=== PATIENT | male | born 1945 | race Caucasian/White ===

== ENCOUNTER 2022-04-26 05:28 | Emergency (ER) | payer MEDICARE, OTHER ==
[~2022-04-26] VITALS: Ht 172 cm; Wt 79.0 kg
--- NOTE | 2022-04-26 05:40 | ED Lower Extremity ---
General Chief Complaint: Lower Extremity Stated Complaint: BOTH KNEE PAIN History of Present Illness Date Seen by Provider: Apr 26, 2022 Time Seen by Provider: 05:40 Initial Comments 76-year-old male presents with bilateral chronic knee pain. Been going on for years. Patient reports he has arthritis. Patient does appear for a couple weeks from [place]. Patient presents because he would like knee injections. Patient has no new injury. Allergies and Home Medications Allergies Coded Allergies: No Known Allergies (Verified Allergy, Unknown, 04/26/22) Patient Home Medication List Home Medication List Reviewed: Yes Review of Systems Constitutional: No chills, No fever EENTM: no symptoms reported Respiratory: no symptoms reported Cardiovascular: no symptoms reported Gastrointestinal: no symptoms reported Musculoskeletal: see HPI Skin: no symptoms reported Psychiatric/Neurological: No Symptoms Reported Physical Exam Vital Signs Capillary Refill : Height, Weight, BMI Height: '" Weight: lbs. oz. kg; BMI Method: General Appearance: WD/WN, no apparent distress HEENT: PERRL/EOMI Cardiovascular: normal peripheral pulses, regular rate, rhythm Respiratory: lungs clear Gastrointestinal: non tender, soft Hips: bilateral hip normal range of motion Legs: bilateral leg normal range of motion Knees: bilateral knee soft tissue tenderness Neurologic/Tendon: normal motor functions, normal tendon functions Neurologic/Psychiatric: alert, normal mood/affect, oriented x 3 Skin: normal color, warm/dry Progress/Results/Core Measures Progress Progress Note : Progress Note I will refer patient Bennie Tierney to see if he can get his outpatient knee injections and establish care since he comes between here in [place]. Patient was given a Toradol shot in the ER. Patient stable and discharged home Departure Impression Primary Impression: Osteoarthritis of knees, bilateral Qualified Codes: M17.0 - Bilateral primary osteoarthritis of knee Additional Impression: Bilateral chronic knee pain Disposition: HOME, SELF-CARE Condition: Stable Departure-Patient Inst. Referrals: HODAN TIERNEY Patient Instructions: Physical Activity for People With Arthritis, Osteoarthritis (DC) Add. Discharge Instructions: Please call Bennie Tierney's office on Thursday morning to arrange for an appointment All discharge instructions reviewed with patient and/or family. Voiced understanding. JUAN MANUEL GOMEZ DO Apr 26, 2022 05:40
[2022-04-26] MEDS ORDERED: KETOROLAC 30 MG/ML VIAL IM STA (05:47)
[2022-04-26 06:03] VITALS: BP 129/77
== END 2022-04-26 06:03 | disposition home or self-care (01) ==
LOC: ER FS 05:30
DX: M17.0 Bilateral primary osteoarthritis of knee (principal)
CPT/HCPCS: 99284

== ENCOUNTER → 2022-05-01 | Outpatient (CLI) | payer MEDICARE | LOC: ORTHO 15:09 | PROVIDERS: ATTEND Orthopaedic Surgery | DX: M17.0 Bilateral primary osteoarthritis of knee (principal) ==

== ENCOUNTER 2023-10-11 14:01 | Inpatient (IN) | payer MEDICARE ==
[2023-10-11] VITALS (7 sets, daily range): BP systolic 102–157; BP diastolic 69–97
[~2023-10-11] VITALS: Ht 170 cm; Wt 83.5 kg
[2023-10-11] MEDS ORDERED: NS IV 1000 ML 1,000 ML IV STA (14:06)
--- NOTE | 2023-10-11 14:11 | ED Neurological Problem ---
General Chief Complaint: Neuro-Stroke Like Symptoms Stated Complaint: SLURRED SPEECH; LETHARGY Source: patient, EMS Exam Limitations: no limitations History of Present Illness Date Seen by Provider: Oct 11, 2023 Time Seen by Provider: 14:00 Initial Comments 78-year-old male with past medical history of diabetes coming in via EMS due to general lethargy and slurred speech. Last known normal was last night around 9 PM. His woke up around 10 AM, noticed his speech was slurred and has been getting slightly worse throughout the day. He missed some Tegretol for his history of trigeminal neuralgia, so he took 2 doses last night, and he accidentally took an extra dose this morning. Other than that, EMS reports his glucose was around 90 and his vitals were unremarkable. They gave him a 0 on their stroke scale. He was stating that he just had a very dry mouth and he thought that was part of the reason. He denies any pain anywhere, vomiting, diarrhea, or any other concerns. Allergies and Home Medications Allergies Coded Allergies: No Known Allergies (Verified Allergy, Unknown, 04/26/22) Patient Home Medication List Home Medication List Reviewed: Yes Review of Systems Review of Systems Constitutional: No fever Eyes: No Symptoms Reported Ears, Nose, Mouth, Throat: see HPI Respiratory: no symptoms reported Cardiovascular: no symptoms reported Gastrointestinal: no symptoms reported Genitourinary: no symptoms reported Musculoskeletal: no symptoms reported Psychiatric/Neurological: See HPI Past Kdhbblb-Gebbci-Onvomg Hx Patient Social History Tobacco Use?: No Smoking Status: Never a Smoker Smokeless Tobacco Frequency: Never a User Use of E-Cig and/or Vaping dev: No Use of E-Cig and/or Vaping Bardly: Never a User Substance use?: No Alcohol Use?: No Pt feels they are or have been: No Physical Exam Vital Signs Vital Signs - First Documented 10/11/23 14:01 Temp 36.7 Pulse 85 Resp 15 B/P (MAP) 137/71 (93) Pulse Ox 96 O2 Delivery Room Air Capillary Refill : Height, Weight, BMI Height: '" Weight: lbs. oz. kg; 26.00 BMI Method: General Appearance: WD/WN, no apparent distress HEENT: PERRL/EOMI, pharynx normal, other (dry tongue) Neck: non-tender, full range of motion, supple, normal inspection Respiratory: chest non-tender, lungs clear, normal breath sounds, no respiratory distress, no accessory muscle use Cardiovascular: regular rate, rhythm, no edema Gastrointestinal: normal bowel sounds, non tender, soft; No guarding, No rebound Back: normal inspection, no CVA tenderness Extremities: normal range of motion, non-tender, normal inspection, no pedal edema, no calf tenderness, normal capillary refill Neurologic/Psychiatric: 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, no motor/sensory deficits, alert, normal mood/affect, oriented x 3 Crainal Nerves: normal hearing, PERRL, abnormal speech (slurred speech) Coordination/Gait: normal finger to nose Motor/Sensory: no motor deficit, no sensory deficit, no pronator drift Skin: normal color, warm/dry Stroke Onset of Symptoms Date of Onset of Symptoms: Oct 10, 2023 Time of Symptom Onset: 21:00 Onset of Symptoms: Yes NIH Stroke Scale Assessment Select: Initial Level of Consciousness: 0=Alert (0), Level of Consciousness- Questions: 0=Answers both month/age (0), LOC Commands: 0=Performs both tasks (0), Gaze: Normal (0), Visual Resendiz: 0=No visual loss (0), Facial Movement (Facial Paresis): 0=Normal symmetrical mnt (0), Motor Function-Arms Right: 0=No drift (0), Motor Function-Arms Left: 0=No drift (0), Motor Function-Legs Right: 0=No drift (0), Motor Function-Legs Left: 0=No drift (0), Limb Ataxia: 0=Absent (0), Sensory: 0=Normal:no loss (0), Best Language: 0=No aphasia (0), Dysarthria: 1=Mild to moderate loss (1), Extinction & Inattention: 0=No abnormality (0), Total: 1 Stroke Thrombolytic Exclusion TPA Contraindication: Yes (timing) IV - TPa Received IV - TPa Procedure Performed?: No Progress/Results/Core Measures Results/Orders Lab Results Laboratory Tests Test 10/11/23 14:10 10/11/23 14:13 10/11/23 14:16 10/11/23 14:51 Range/Units White Blood Count 9.7 4.3-11.0 10^3/uL Red Blood Count 3.82 L 4.30-5.52 10^6/uL Hemoglobin 9.2 L 13.3-17.7 g/dL Hematocrit 32 L 40-54 % Mean Corpuscular Volume 85 80-99 fL Mean Corpuscular Hemoglobin 24 L 25-34 pg Mean Corpuscular Hemoglobin Concent 28 L 32-36 g/dL Red Cell Distribution Width 17.2 H 10.0-14.5 % Platelet Count 349 130-400 10^3/uL Mean Platelet Volume 9.4 9.0-12.2 fL Immature Granulocyte % (Auto) 0 % Neutrophils (%) (Auto) 79 H 42-75 % Lymphocytes (%) (Auto) 10 L 12-44 % Monocytes (%) (Auto) 8 0-12 % Eosinophils (%) (Auto) 2 0-10 % Basophils (%) (Auto) 1 0-10 % Neutrophils # (Auto) 7.7 1.8-7.8 10^3/uL Lymphocytes # (Auto) 1.0 1.0-4.0 10^3/uL Monocytes # (Auto) 0.7 0.0-1.0 10^3/uL Eosinophils # (Auto) 0.2 0.0-0.3 10^3/uL Basophils # (Auto) 0.1 0.0-0.1 10^3/uL Immature Granulocyte # (Auto) 0.0 0.0-0.1 10^3/uL Prothrombin Time 12.8 12.2-14.7 SEC INR Comment 0.9 0.8-1.4 Activated Partial Thromboplast Time 24 24-35 SEC Sodium Level 140 135-145 MMOL/L Potassium Level 4.2 3.6-5.0 MMOL/L Chloride Level 105 98-107 MMOL/L Carbon Dioxide Level 28 21-32 MMOL/L Anion Gap 7 5-14 MMOL/L Blood Urea Nitrogen 15 7-18 MG/DL Creatinine 1.53 H 0.60-1.30 MG/DL Estimat Glomerular Filtration Rate 47 BUN/Creatinine Ratio 10 Glucose Level 72 70-105 MG/DL Calcium Level 8.7 8.5-10.1 MG/DL Corrected Calcium 9.2 8.5-10.1 MG/DL Total Bilirubin < 0.2 0.1-1.0 MG/DL Aspartate Amino Transf (AST/SGOT) 19 5-34 U/L Alanine Aminotransferase (ALT/SGPT) 8 0-55 U/L Alkaline Phosphatase 72 40-136 U/L Troponin I < 0.30 <0.30 NG/ML Pro-B-Type Natriuretic Peptide 228.5 <450.0 PG/ML Total Protein 5.9 L 6.4-8.2 GM/DL Albumin 3.4 3.2-4.5 GM/DL Carbamazepine (Tegretol) Level > 15.0 *H 4.0-12.0 UG/ML Serum Alcohol < 10 <10 MG/DL Glucometer 57 *L 94 70-110 MG/DL Urine Color YELLOW Urine Clarity CLEAR Urine pH 6.0 5-9 Urine Specific [place] 1.010 L 1.016-1.022 Urine Protein NEGATIVE NEGATIVE Urine Glucose (UA) 2+ H NEGATIVE Urine Ketones NEGATIVE NEGATIVE Urine Nitrite NEGATIVE NEGATIVE Urine Bilirubin NEGATIVE NEGATIVE Urine Urobilinogen 0.2 < = 1.0 MG/DL Urine Leukocyte Esterase NEGATIVE NEGATIVE Urine RBC (Auto) NEGATIVE NEGATIVE Urine RBC NONE /HPF Urine WBC NONE /HPF Urine Squamous Epithelial Cells 2-5 /HPF Urine Crystals NONE /LPF Urine Bacteria TRACE /HPF Urine Casts PRESENT /LPF Urine Hyaline Casts 0-2 H /LPF Urine Mucus NEGATIVE /LPF Urine Culture Indicated NO Urine Opiates Screen NEGATIVE NEGATIVE Urine Oxycodone Screen NEGATIVE NEGATIVE Urine Methadone Screen NEGATIVE NEGATIVE Urine Barbiturates Screen NEGATIVE NEGATIVE Ur Tricyclic Antidepressants Screen POSITIVE H NEGATIVE Urine Phencyclidine Screen NEGATIVE NEGATIVE Urine Amphetamines Screen NEGATIVE NEGATIVE Urine Methamphetamines Screen NEGATIVE NEGATIVE Urine Benzodiazepines Screen NEGATIVE NEGATIVE Urine Cocaine Screen NEGATIVE NEGATIVE Urine Cannabinoids Screen NEGATIVE NEGATIVE My Orders Orders - TD MCNALLY MD Cbc And Automated Diff (10/11/23 14:06) Protime With Inr (10/11/23 14:06) Partial Thromboplastin Time (10/11/23 14:06) Comprehensive Metabolic Panel (10/11/23 14:06) Troponin I Fs (10/11/23 14:06) Ua Culture If Indicated (10/11/23 14:06) Chest 1 View Ap/Pa Only (10/11/23 14:06) Ekg Tracing (10/11/23 14:06) Accucheck Stat ONCE (10/11/23 14:06) Ed Iv/Invasive Line Start (10/11/23 14:06) Vital Signs Stroke Patient Q15M (10/11/23 14:06) Ct Head Wo-R/O Stroke (10/11/23 14:06) O2 (10/11/23 14:06) Intake & Output 06,14,22 (10/11/23 14:06) Monitor-Rhythm Ecg Trace Only (10/11/23 14:06) Dysphagia Screening Tool Q10MX1 (10/11/23 14:06) Alcohol (10/11/23 14:06) Drug Screen Stat (Urine) (10/11/23 14:06) Ns Iv 1000 Ml (Ns Iv 1000 Ml) (10/11/23 14:06) Probnp Fs (10/11/23 14:19) D50w (Emergency) Syringe (Dextrose 50% 5 (10/11/23 14:30) D50w (Emergency) Syringe (Dextrose 50% 5 (10/11/23 14:26) Accucheck Stat ONCE (10/11/23 14:53) Ct Angio Head/Neck (10/11/23 14:57) Carbamazepine (Tegretol) (10/11/23 14:57) Iohexol Injection (Omnipaque 350 Mg/Ml 1 (10/11/23 15:15) Received Contrast (Hold Metformin- Contr (10/11/23 15:15) Ns (Ivpb) 100 Ml (Sodium Chloride 0.9% 1 (10/11/23 15:15) Ed Admission (Communication) (10/11/23 16:20) Medications Given in ED Current Medications Medications Dose Ordered Sig/Husam Route Start Time Stop Time Status Last Admin Dose Admin Dextrose 25 ml ONCE ONCE IV 10/11/23 14:30 10/11/23 14:31 DC 10/11/23 14:27 25 ML Iohexol 75 ml ONCE ONCE IV 10/11/23 15:15 10/11/23 15:16 DC 10/11/23 15:29 75 ML Sodium Chloride 100 ml ONCE ONCE IV 10/11/23 15:15 10/11/23 15:16 DC 10/11/23 15:29 80 ML Vital Signs/I&O 10/11/23 10/11/23 14:01 14:01 Temp 36.7 Pulse 85 Resp 15 B/P (MAP) 137/71 (93) Pulse Ox 96 O2 Delivery Room Air Room Air Progress Progress Note : Progress Note 78-year-old male with above history coming in due to slurred speech. ABCs were intact and vitals were stable on presentation. Physical exam with an NIH of 1 due to his slurred speech. Initially his iilhhs-te-oscq was abnormal, but he was able to fix it later. He also was a little drowsy, but oriented. It is possible this could be related to Tegretol, a level will be sent. He is out of any window for any immediate stroke treatment since his last known normal was last night and he did not come to the ER until roughly 2 PM. Glucose for EMS was in the 90s, Frasca was in the 50s. He was given half an amp of D50 followed by food. Repeat glucose in the 90s again, he still has slurred speech and is drowsy. CT head ordered and interpreted by me showing no obvious hemorrhage or mass. It was read as negative for acute findings per the radiologist. Chest x- ray also ordered and negative. An IV was placed and basic labs were obtained and were significant for normal white blood cell count, slightly elevated creatinine with unknown baseline, negative troponin, normal BNP, negative alcohol level, urine drug screen which is tricyclic's. I contacted the stroke neurologist at [facility]. They recommended CTA of his head and neck, and admission for MRI and echo. They stated this could be related to c arbamazepine versus could be stroke. They agree that is out of any window for treatment and does not need thrombectomy with no LVO. I contacted Dr. Ibarra, he will admit the patient under inpatient status to the step down for further evaluation and management. I discussed with the that she should bring all of his home medications so they can go through them later and see if he is doubling up on the carbamazepine via potentially 2 different prescriptions. Initial ECG Impression Date: Oct 11, 2023 Initial ECG Impression Time: 14:23 Initial ECG Rate: 84 Initial ECG Rhythm: Normal Sinus Comment Narrow QRS, borderline left axis deviation, no STEMI Diagnostic Imaging Diagonstic Imaging: Xray (chest), CT (CT head, CTA head and neck) Comments NAME: [facility] REC#: [id number] PT STATUS: REG ER : 1945 PHYSICIAN: TD MCNALLY MD ADMIT DATE: 10/11/23/ER FS Draft Date of Exam:10/11/23 CHEST 1 VIEW AP/PA ONLY EXAM: CHEST 1 VIEW AP/PA ONLY INDICATION: Lethargy. Slurred speech. COMPARISON: None. FINDINGS: Normal heart size and central pulmonary vascularity. Lungs are clear. No pleural effusion or pneumothorax. No acute osseous findings. IMPRESSION: Low lung volumes. Chest is otherwise negative. Dictated on workstation # [id number] Dict: 10/11/23 1422 Trans: 10/11/23 1423 CVB [id number] Interpreted by: SERGE MANNING MD Electronically signed by: ANIYAH VIA [place], [place] NAME: [facility]AYELI [facility] REC#: [id number] PT STATUS: REG ER : 1945 PHYSICIAN: TD MCNALLY MD ADMIT DATE: 10/11/23/ER FS Draft Date of Exam:10/11/23 CT HEAD WO-R/O STROKE PROCEDURE: CT head wo r/o stroke. TECHNIQUE: Multiple contiguous axial images were obtained through the brain without the use of intravenous contrast. Auto Exposure Controls were utilized during the CT exam to meet ALARA standards for radiation dose reduction. INDICATION: Stroke. Slurred speech. COMPARISON: None. FINDINGS: Moderate generalized parenchymal volume loss. No intracranial hemorrhage, mass effect, hydrocephalus or extra-axial fluid collections. No CT evidence of territorial infarction. Osseous structures are intact. Visualized paranasal sinuses and mastoids are clear. IMPRESSION: No acute intracranial CT findings. Dictated on workstation # [id number] Dict: 10/11/23 1434 Trans: 10/11/23 1440 CVB [id number] Interpreted by: SERGE MANNING MD Electronically signed by: NAME: [facility] REC#: [id number] PT STATUS: REG ER : 1945 PHYSICIAN: TD MCNALLY MD ADMIT DATE: 10/11/23/ER FS Signed Date of Exam:10/11/23 CT ANGIO HEAD/NECK EXAMINATION: CT angiography head and neck with and without contrast. TECHNIQUE: After intravenous administration of contrast, thin section axial CT angiography of the head and neck was performed to screen for LVO, and multiple reformats including MIP reconstructions. Postcontrast CT of the head was also obtained. All CT scans use one or more of the following dose optimizing techniques: automated exposure control, MA and/or KvP adjustment based on a patient size and exam type, or iterative reconstruction. CT angiogram was post-processed using RAPID LVO detection to include quantitative measurements of cerebral blood flow and automated results notification to the stroke and/or neurointerventional team. HISTORY: AMS, slurred speech COMPARISON: None available. FINDINGS: Overall suboptimal evaluation of the vasculature in the head and neck secondary to significant streak artifact and poor contrast bolus timing. HEAD: Anterior circulation: There are vascular calcifications of the cavernous portions of the ICAs with likely less than 50% stenosis. The anterior and middle cerebral arteries show no stenosis or intraluminal filling defect. No anterior circulation aneurysm is present. Posterior circulation: The visualized distal vertebral arteries are patent to the vertebrobasilar junction. The basilar artery and both posterior cerebral arteries are widely patent without stenosis. No posterior circulation aneurysm is present. Please see same day noncontrast CT head for discussion of nonvascular findings. No suspicious enhancement. NECK: Arch: Conventional branching of the aortic arch. The visualized subclavian arteries are patent without stenosis. Right: There are vascular calcifications within the distal common carotid artery and proximal internal carotid artery with less than 25% stenosis, as visualized. Limited evaluation of the proximal and mid right vertebral artery. Left: Mild plaque within the distal left common carotid artery without significant stenosis. The distal left vertebral artery appears patent but the proximal and mid portions are difficult to evaluate. Other: The visualized thyroid gland is unremarkable. The cervical soft tissues are unremarkable. The visualized upper lungs and mediastinum are normal. Degenerative changes of the cervical spine. IMPRESSION: No evidence of large vessel occlusion within the visualized head or neck. Evaluation is suboptimal secondary to streak artifact and poor bolus timing. Dictated by: Dictated on workstation # [id number] Dict: 10/11/23 1545 Trans: 10/11/231558 [facility] [id number] Interpreted by: KELLY VOGT DO Electronically signed by: KELLY VOGT DO 10/11/23 1559 Departure Impression Primary Impression: Slurred speech Additional Impressions: Stroke-like symptoms Hypoglycemia BONITA (acute kidney injury) Carbamazepine toxicity Qualified Codes: T42.1X1A - Poisoning by iminostilbenes, accidental (unintentional), initial encounter Disposition: 30 STILL A PATIENT Condition: Stable Admissions Decision to Admit Reason: Admit from ER (General) Decision to Admit/Date: Oct 11, 2023 Time/Decision to Admit Time: 15:20 Transfer Transfer Facility: [facility] Method of Transfer: EMS Departure-Patient Inst. Referrals: NO,LOCAL PHYSICIAN (PCP/Family) Primary Care Physician TD MCNALLY MD Oct 11, 2023 14:11
[2023-10-11 14:19] LABS: BASOPHILS # (AUTO) 0.1 10^3/uL (0.0-0.1); BASOPHILS % (AUTO) 1 % (0-10); EOSINOPHILS # (AUTO) 0.2 10^3/uL (0.0-0.3); EOSINOPHILS % (AUTO) 2 % (0-10); HEMATOCRIT 32 % (40-54); HEMOGLOBIN 9.2 g/dL (13.3-17.7); LYMPHOCYTES % (AUTO) 10 % (12-44); MEAN CORPUSCULAR HEMOGLOBIN 24 pg (25-34); MEAN CORPUSCULAR HGB CONC 28 g/dL (32-36); MEAN CORPUSCULAR VOLUME 85 fL (80-99); MEAN PLATELET VOLUME 9.4 fL (9.0-12.2); MONOCYTES # (AUTO) 0.7 10^3/uL (0.0-1.0); MONOCYTES % (AUTO) 8 % (0-12); NEUTROPHILS # (AUTO) 7.7 10^3/uL (1.8-7.8); NEUTROPHILS % (AUTO) 79 % (42-75); PLATELET COUNT 349 10^3/uL (130-400); WHITE BLOOD COUNT 9.7 10^3/uL (4.3-11.0)
[2023-10-11 14:20] LABS: BILIRUBIN,URINE NEGATIVE (NEGATIVE); CLARITY,URINE CLEAR; COLOR,URINE YELLOW; GLUCOSE, URINE (UA) 2+ (NEGATIVE); KETONES,URINE NEGATIVE (NEGATIVE); LEUKOCYTE ESTERASE ,URINE NEGATIVE (NEGATIVE); NITRITE,URINE NEGATIVE (NEGATIVE); PROTEIN,URINE NEGATIVE (NEGATIVE)
--- NOTE | 2023-10-11 14:24 | Diagnostic Imaging Report ---
EXAM: CHEST 1 VIEW AP/PA ONLY INDICATION: Lethargy. Slurred speech. COMPARISON: None. FINDINGS: Normal heart size and central pulmonary vascularity. Lungs are clear. No pleural effusion or pneumothorax. No acute osseous findings. IMPRESSION: Low lung volumes. Chest is otherwise negative. Dictated by: Dictated on workstation # [id number]
[2023-10-11] MEDS ORDERED: DEXTROSE 50% 50 ML (IMS) SYR ONE (14:26)
[2023-10-11 14:27] LABS: BACTERIA,URINE TRACE /HPF; HYALINE CASTS, URINE 0-2 /LPF
[2023-10-11] MEDS ORDERED: DEXTROSE 50% 50 ML (IMS) SYR IV ONE (14:30)
[2023-10-11 14:31] LABS: AMPHETAMINE SCREEN, URINE NEGATIVE (NEGATIVE); BARBITURATE SCREEN URINE NEGATIVE (NEGATIVE); CANNABINOID SCREEN, URINE NEGATIVE (NEGATIVE); COCAINE SCREEN URINE NEGATIVE (NEGATIVE); METHADONE STAT NEGATIVE (NEGATIVE); OPIATE SCREEN URINE NEGATIVE (NEGATIVE); OXYCODONE STAT NEGATIVE (NEGATIVE); TRICYCLIC ANTIDEPRESSANTS SCRE POSITIVE (NEGATIVE)
[2023-10-11 14:31] LABS: INR 0.9 (0.8-1.4); PROTHROMBIN TIME PATIENT 12.8 SEC (12.2-14.7)
[2023-10-11 14:34] LABS: BILIRUBIN,TOTAL < 0.2 MG/DL (0.1-1.0); CALCIUM 8.7 MG/DL (8.5-10.1); CHLORIDE 105 MMOL/L (98-107); POTASSIUM 4.2 MMOL/L (3.6-5.0); SODIUM 140 MMOL/L (135-145)
[2023-10-11 14:39] LABS: ALANINE AMINOTRANSFERASE 8 U/L (0-55); ALKALINE PHOSPHATASE 72 U/L (40-136); BUN/CREATININE RATIO 10; CARBON DIOXIDE 28 MMOL/L (21-32); CREATININE SERUM 1.53 MG/DL (0.60-1.30); GFR ESTIMATED 47; GLUCOSE 72 MG/DL (70-105)
[2023-10-11 14:40] LABS: ALBUMIN 3.4 GM/DL (3.2-4.5); TOTAL PROTEIN 5.9 GM/DL (6.4-8.2)
--- NOTE | 2023-10-11 14:41 | Diagnostic Imaging Report ---
PROCEDURE: CT head wo r/o stroke. TECHNIQUE: Multiple contiguous axial images were obtained through the brain without the use of intravenous contrast. Auto Exposure Controls were utilized during the CT exam to meet ALARA standards for radiation dose reduction. INDICATION: Stroke. Slurred speech. COMPARISON: None. FINDINGS: Moderate generalized parenchymal volume loss. No intracranial hemorrhage, mass effect, hydrocephalus or extra-axial fluid collections. No CT evidence of territorial infarction. Osseous structures are intact. Visualized paranasal sinuses and mastoids are clear. IMPRESSION: No acute intracranial CT findings. Dictated by: Dictated on workstation # [id number]
[2023-10-11] MEDS ORDERED: IOHEXOL 350 MG/ML 100 ML (OMNIPAQUE 350) VIAL IV ONE (15:15)
[2023-10-11] MEDS ORDERED: NS 100 ML (IVPB) BAG IV ONE (15:15)
[2023-10-11] MEDS ORDERED: HOLD METFORMIN - RECEIVED CONTRAST 20 ML VIAL IV SCH (15:15)
--- NOTE | 2023-10-11 15:59 | Diagnostic Imaging Report ---
EXAMINATION: CT angiography head and neck with and without contrast. TECHNIQUE: After intravenous administration of contrast, thin section axial CT angiography of the head and neck was performed to screen for LVO, and multiple reformats including MIP reconstructions. Postcontrast CT of the head was also obtained. All CT scans use one or more of the following dose optimizing techniques: automated exposure control, MA and/or KvP adjustment based on a patient size and exam type, or iterative reconstruction. CT angiogram was post-processed using RAPID LVO detection to include quantitative measurements of cerebral blood flow and automated results notification to the stroke and/or neurointerventional team. HISTORY: AMS, slurred speech COMPARISON: None available. FINDINGS: Overall suboptimal evaluation of the vasculature in the head and neck secondary to significant streak artifact and poor contrast bolus timing. HEAD: Anterior circulation: There are vascular calcifications of the cavernous portions of the ICAs with likely less than 50% stenosis. The anterior and middle cerebral arteries show no stenosis or intraluminal filling defect. No anterior circulation aneurysm is present. Posterior circulation: The visualized distal vertebral arteries are patent to the vertebrobasilar junction. The basilar artery and both posterior cerebral arteries are widely patent without stenosis. No posterior circulation aneurysm is present. Please see same day noncontrast CT head for discussion of nonvascular findings. No suspicious enhancement. NECK: Arch: Conventional branching of the aortic arch. The visualized subclavian arteries are patent without stenosis. Right: There are vascular calcifications within the distal common carotid artery and proximal internal carotid artery with less than 25% stenosis, as visualized. Limited evaluation of the proximal and mid right vertebral artery. Left: Mild plaque within the distal left common carotid artery without significant stenosis. The distal left vertebral artery appears patent but the proximal and mid portions are difficult to evaluate. Other: The visualized thyroid gland is unremarkable. The cervical soft tissues are unremarkable. The visualized upper lungs and mediastinum are normal. Degenerative changes of the cervical spine. IMPRESSION: No evidence of large vessel occlusion within the visualized head or neck. Evaluation is suboptimal secondary to streak artifact and poor bolus timing. Dictated by: Dictated on workstation # [id number]
[2023-10-11] MEDS ORDERED: D5 1/2NS + KCL 20 MEQ/L 1000ML 1,000 ML IV ONE (20:07)
[2023-10-11] MEDS ORDERED: ONDANSETRON INJECTION 4 MG/2 ML (SDV) IV PRN (20:30)
[2023-10-11] MEDS: D5 1/2NS + KCL 20 MEQ/L 1000ML 1,000 ML IV SCH (20:43)
[2023-10-11] MEDS: inSUlin ASPART 1 UNIT/0.01 ML (PER UNIT) SC SCH (20:44)
[2023-10-11] MEDS ORDERED: AMITRIPTYLINE 25 MG TABLET PO SCH (21:00)
[2023-10-12] VITALS (9 sets, daily range): BP systolic 82–135; BP diastolic 48–77
[2023-10-12] MEDS ORDERED: NS IV 500 ML 500 ML IV PRN (03:45)
[2023-10-12 05:17] LABS: POTASSIUM 3.9 MMOL/L (3.6-5.0)
[2023-10-12 05:18] LABS: CALCIUM 7.2 MG/DL (8.5-10.1)
[2023-10-12 05:23] LABS: CREATININE SERUM 1.24 MG/DL (0.60-1.30)
[2023-10-12] MEDS: inSUlin ASPART 1 UNIT/0.01 ML (PER UNIT) SC SCH ×2 (05:38→11:30)
[2023-10-12] MEDS: D5 1/2NS + KCL 20 MEQ/L 1000ML 1,000 ML IV SCH (05:57)
[2023-10-12] MEDS ORDERED: POTASSIUM CL 10MEQ/50ML IVPB 50 ML IV SCH (06:00)
[2023-10-12] MEDS ORDERED: POTASSIUM CHLORIDE 20 MEQ TABLET PO SCH (06:00)
[2023-10-12] MEDS ORDERED: MAGNESIUM 1 GM/100 ML IVPB 100 ML IV SCH (06:00)
[2023-10-12] MEDS ORDERED: LEVOTHYROXINE 125 MCG TABLET PO SCH (06:30)
[2023-10-12] MEDS ORDERED: VALSARTAN 80 MG (DIOVAN) TAB PO SCH (09:00)
[2023-10-12 11:16] LABS: CARBAMAZEPINE (TEGRETOL) 7.6 UG/ML (4.0-12.0)
--- NOTE | 2023-10-12 11:26 | Diagnostic Imaging Report ---
PROCEDURE: MR imaging of the brain without contrast. TECHNIQUE: Multiplanar, multisequence MR imaging of the brain was performed without contrast. INDICATION: Slurred speech. Stroke. Head injury. Falls. COMPARISON: CTA head and neck 10/11/2023. FINDINGS: Mild to moderate generalized volume loss. Mild nonspecific T2 hyperintensities in the supratentorial white matter are compatible with chronic small vessel ischemic change. No restricted water diffusion. No hemosiderin deposition or evidence of intracranial hemorrhage. Normal morphology including the major midline structures, sella, posterior fossa, and cerebellar pontine angle. Normal intracranial flow voids. No hydrocephalus or extra-axial fluid collections. Post operative changes in the globes. Paranasal sinuses and mastoids are clear. IMPRESSION: Age-appropriate MRI of the brain. No acute findings. No evidence of acute infarction or hemorrhage. Dictated by: Dictated on workstation # [id number]
--- NOTE | 2023-10-12 11:37 | Speech Therapy Progress Note ---
Therapy Progress Note Speech pathology received the cognitive linguistic evaluation, the chart was reviewed, and the assessment was completed on two attempts. During the first attempt, the patient was out of the room for a MRI. On the second attempt, the patient and patient's family member were present. Per patient, "I knew when I was slurring, I'm not doing it anymore." The patient (and ) confirmed the patient's return to baseline speech, language, and cognitive function. The [facility] pul[facility]ian requested the patient contact staff immediately if any changes or concerns arise. At this time, skilled speech pathology services are not warranted. NOLAN GEIGER Oct 12, 2023 11:37
--- NOTE | 2023-10-12 11:56 | History & Physical-Hospitalist ---
RADHA PEOPLES 10/12/23 1156: History of Present Illness HPI/Chief Complaint Pt is a 78-year-old male who came into the ER via EMS yesterday at 2 PM due to general lethargy and slurred speech. Last known normal was the night before around 9 PM. His woke up around 10 AM yesterday, noticed his speech was slurred and was getting worse throughout the day. He missed some Tegretol for his history of trigeminal neuralgia, so he took 2 doses 2 nights ago, and he accidentally took an extra dose yesterday morning. Other than that, EMS reports his glucose was around 90 and his vitals were unremarkable. They gave him a 0 on their stroke scale. He only reported dry mouth. Denied any pain anywhere, vomiting, diarrhea, or any other concerns. Today, pt feels better and wonders if his blood sugar being low contributed to how he felt yesterday. States that he has had low blood sugar before but has never felt weak like yesterday with staggering gait. He reports one fall where his R eyebrow was hit. His states that his speech is improved today. Pt reports that his L side of his face is still slightly droopy compared to the other side but unclear if this is his baseline. Source: patient, family Exam Limitations: no limitations Date Seen 10/12/23 Time Seen by a Provider: 11:51 Attending Physician Luz,Local Physician PCP Admitting Physician: Sarah Ibarra MD Attending Physician: Sarah Ibarra MD Referring Physician Date of Admission Oct 11, 2023 at 18:30 Home Medications & Allergies Home Medications Reviewed patient Home Medication Reconciliation performed by pharmacy medication reconciliations truck technician and/or nursing. Patients Allergies have been reviewed. Allergies Allergies Coded Allergies No Known Allergies (Verified Allergy, Unknown, 04/26/22) Past Vftxpmz-Fgplgu-[id number] Hx Patient Social History Marrital Status: Tobacco Use?: No Smoking Status: Never a Smoker Smokeless Tobacco Frequency: Never a User Use of E-Cig and/or Vaping dev: No Use of E-Cig and/or Vaping Bradly: Never a User Substance use?: No Alcohol Use?: No Pt feels they are or have been: No Seasonal Allergies Seasonal Allergies: Yes Current Status Advance Directives: No Communicates: Verbally Primary Language: Irish Preferred Spoken Language: Irish Is interpretation needed?: No Past Medical History Surgeries: Abdominal (hernia repair at 12 years old, partial colectomy in the 70's) Asthma Chronic Edema/Swelling, Hypertension Headaches /Migraines (Trigeminial neuralgia) Abdominal Hernia, Chronic Constipation (vagal nerve paralysis), Polyps Hypothyroidsim, Diabetes, Non-Insulin dep Loss of Vision: Denies Hearing Impairment: Hard of Hearing Review of Systems Constitutional: No chills, No diaphoresis, No fever EENTM: hearing loss; No ear pain, No blurred vision, No vision loss, No hoarseness Respiratory: No cough, No dyspnea on exertion, No hemoptysis, No short of breath Cardiovascular: No chest pain; edema; No palpitations Gastrointestinal: No abdominal pain, No diarrhea, No hematemesis; heartburn; No loss of appetite, No melena, No nausea, No vomiting Genitourinary: No decreased output, No discharge, No frequency, No hematuria Musculoskeletal: No gout, No neck pain Skin: No pruritus, No rash Psychiatric/Neurological: Denies Headache, Denies Numbness; Paresthesia (L side of face associated with trigeminal neuralgia); Denies Seizure Physical Exam Physical Exam Vital Signs Vital Signs - First Documented 10/11/23 10/11/23 14:01 18:53 Temp 36.7 Pulse 85 Resp 15 B/P (MAP) 137/71 (93) Pulse Ox 96 O2 Delivery Room Air FiO2 21 Capillary Refill : Less Than 3 Seconds Height, Weight, BMI Height: '" Weight: lbs. oz. kg; 28.89 BMI Method: General Appearance: No Apparent Distress, Chronically ill Eyes: Bilateral Eye Normal Inspection, Bilateral Eye PERRL HEENT: TMs Normal, Normal ENT Inspection Neck: Normal Inspection, Non Tender Respiratory: Chest Non Tender, No Accessory Muscle Use, No Respiratory Distress, Crackles Cardiovascular: No JVD, Systolic Murmur, Gallop/S3 Gastrointestinal: Normal Bowel Sounds, Non Tender, Soft Extremity: No Calf Tenderness, Pedal Edema (3+ worse on the R side), Other (Lower extremities are pale b/l) Neurologic/Psychiatric: Alert, Oriented x3, No Motor/Sensory Deficits, Normal Mood/Affect; No Aphasia; Facial Droop (L side lower face asymmetrical smile and very slight droop. Unsure if at baseline); No Motor Weakness Skin: Normal Color, Cool, Pallor (b/l feet and legs) Results Results/Procedures Labs Laboratory Tests 10/11/23 14:10 10/11/23 19:01 10/12/23 04:05 Patient resulted labs reviewed. Imaging: Reviewed Imaging Report Assessment/Plan Admission Diagnosis Slurred speech, carbamazepine toxicity, BONITA Reason for Inpatient Admission: Slurred speech, carbamazepine toxicity, BONITA Assessment and Plan Slurred speech secondary to carbamazepine toxicity - MRI head today to rule out stroke - Negative noncontrast CT head - Neg coags - Urine tox screen + for TCAs with carbamazepine >15. Repeat titer BONITA - Creatinine 1.53 in ER and 1.24 today on repeat CMP - Continue NaCl, KCl/dextrose for adequate hydration T2DM - Episode of hypoglycemia at 57. Most recent glucometer = 75. - Continue sliding scale insulin Hypothyroidism - Continue levothyroxine 125 mcg PO/d Clinical Quality Measures Stroke: Date of last known well: Oct 10, 2023 Time of last known well: 21:00 BRODY CANO MD 10/12/23 1506: Assessment/Plan Assessment and Plan Patient mated to the hospital due to strokelike symptoms and slurred speech. CT head and CTA were negative for acute findings or large vessel occlusions. He did report maybe taking an extra couple doses of his Tegretol. His level was found to be greater than 15. He was monitored overnight and treated with IV fluids. A repeat level after talking to poison control was found to be 7.6. His symptoms resolved. An MRI was done just to be sure that he did not have any other processes going on was negative for acute infarct. He reported being back to his baseline and his agreed with this. He was adamant about discharging in order to go deer hunting tomorrow. He was discharged home in stable improved condition to follow-up with his primary care physician in [place] in 2 weeks. Supervisory-Addendum Brief Verification & Attestation Participated in pt care: history, MDM, physical Personally performed: exam, history, MDM, supervision of care Care discussed with: Medical Student Procedures: n/a Results interpretation: Verified all documentation Verification and Attestation of Medical Student E/M Service A medical student performed and documented this service in my presence. I reviewed and verified all information documented by the medical student and made modifications to such information, when appropriate. I personally performed the physical exam and medical decision making. Brody Cano, Oct 12, 2023,15:04 RADHA PEOPLES Oct 12, 2023 11:56 BRODY CANO MD Oct 12, 2023 15:06
--- NOTE | 2023-10-12 11:59 | Discharge Inst-Simple/Standard ---
Discharge Inst-Standard Patient Instructions/Follow Up Plan of Care/Instructions/FU: Please continue to take your medications as written. Please follow up with your primary care doctor to follow up this hospital stay. Activity as Tolerated: Yes Discharge Diet: ADA Diet Return to The Hospital For: Chest pain, shortness of breath, fever, weakness, if you feel you are getting worse. BRODY BUTTS MD Oct 12, 2023 11:59
[2023-10-12] MEDS ORDERED: DULO30CA49 PO (12:29)
[2023-10-12] MEDS ORDERED: GLIM4TAB5 PO (12:29)
[2023-10-12] MEDS ORDERED: OLME40TA18 PO (12:29)
[2023-10-12] MEDS ORDERED: EMPA25TA PO (12:29)
[2023-10-12] MEDS ORDERED: [UNRECOGNIZED DRUG - CODE] PO (12:29)
[2023-10-12] MEDS ORDERED: LEVO125T6 PO (12:29)
[2023-10-12] MEDS ORDERED: TEST200V27 IM (12:29)
[2023-10-12] MEDS ORDERED: BUDE10.2 IH (12:29)
[2023-10-12] MEDS ORDERED: POTA-330 PO (12:29)
[2023-10-12] MEDS ORDERED: FURO40TA4 PO (12:29)
[2023-10-12] MEDS ORDERED: AMIT25TA9 PO (12:29)
[2023-10-12] MEDS ORDERED: MULT-1136 PO (12:29)
[2023-10-12] MEDS ORDERED: ATOR40TA70 PO (12:29)
[2023-10-12] MEDS ORDERED: METF-865 PO (12:29)
[2023-10-12] MEDS ORDERED: CARB-88 PO ×2 (12:29)
[2023-10-12] MEDS ORDERED: VITA100033 PO (12:29)
[2023-10-12] MEDS ORDERED: ASPI-1238 PO (12:29)
[2023-10-12] MEDS ORDERED: IPRA4AER IH (12:29)
--- NOTE | 2023-10-12 12:55 | Physical Therapy Evaluation ---
PT Evaluation-General Medical Diagnosis Admission Date Oct 11, 2023 at 18:30 Medical Diagnosis: slurred speech Onset Date: Oct 11, 2023 Therapy Diagnosis Therapy Diagnosis: debility Precautions Precautions/Isolations: Fall Prevention, Standard Precautions Referral Physician: Rachael Reason for Referral: Evaluation/Treatment Medical History Pertinent Medical History: DM Current History EMS secondary to lethargy and slurred speech Reviewed History: Yes Social History Home: Single Level Current Living Status: Spouse Prior Prior Level of Function SCALE: Activities may be completed with or without assistive devices. 4-Udhqkqrnuq-rbwpoae completes the activity by him/herself with no assistance from a helper. 5-Set-up or Clean-up Assistance-helper sets up or cleans up; patient completes activity. [place] assists only prior to or following the activity. 4-Supervision or Touching Assistance-helper provides verbal cues and/or touching/steadying and/or contact guard assistance as patient completes activity. Assistance may be provided throughout the activity or intermittently. 3-Partial/Moderate Assistance-helper does LESS THAN HALF the effort. [place] lifts, holds or supports trunk or limbs, but provides less than half the effort. 2-Substantial/Maximal Assistance-helper does MORE THAN HALF the effort. [place] lifts or holds trunk or limbs and provides more than half the effort. 3-Fwwyustlx-zhubdq does ALL the effort. Patient does none of the effort to complete the activity. Or, the assistance of 2 or more helpers is required for the patient to complete the activity. If activity was not attempted, code reason: 7-Patient Refused. 9-Not Applicable-not attempted and the patient did not perform the activity before the current illness, exacerbation or injury. 10-Not Attempted due to Environmental Limitations-(lack of equipment, weather restraints, etc.). 88-Not Attempted due to Medical Conditions or Safety Concerns. Bed Mobility: 6 Transfers (B,C,W/C): 6 Gait: 6 Stairs: 6 Indoor Mobility (Ambulation): Independent Stairs: Independent Prior Devices Use: None PT Evaluation-Current Subjective Patient agrees to therapy. Objective Patient Orientation: Normal For Age ROM/Strength ROM Lower Extremities bilateral LE WFL Strength Lower Extremities 5/5 grossly bilateral LE all planes Integumentary/Posture Bowel Incontinence: No Bladder Incontinence: No Posture WFL Neuromuscular (Tone, Coordination, Reflexes) grossly intact Sensory Vision: Functional Hearing: Impaired Transfers Lying to Sitting/Side of Bed(Q: 6 Sit to Stand (QC): 6 Chair/Kjs-ey-Xcrxl Xfer(QC): 6 Gait Mode of Locomotion: Walk Anticipated Mode of Locomotion: Walk Walk 10 feet (QC): 6 Walk 50 ft with 2 Turns(QC): 6 Walk 150 ft (QC): 6 Distance: 200' Gait Assistive Device: None Comments/Gait Description safe and functional with no deviation Balance Sitting Static: Normal Sitting Dynamic: Normal Standing Static: Normal Standing Dynamic: Normal Assessment/Needs Patient is currently at independent [facility] with all gross motor skills and does not require skilled PT intervention at this time. Rehab Potential: Fair PT Plan Treatment/Plan Treatment Plan: Discontinue PT Treatment Duration: Oct 12, 2023 Frequency: 1 time per week Estimated Hrs Per Day: .25 hour per day Patient and/or Family Agrees t: Yes Time Time In: 1235 Time Out: 1248 DATE: Oct 12, 2023 Total Billed Treatment Time: 13 Total Billed Treatment [address] [facility] 13 min ERICK JUNIOR PT Oct 12, 2023 12:55
--- NOTE | 2023-10-12 12:59 | Occupational Therapy Eval ---
OT Evaluation-General/PLF Medical Diagnosis Admission Date Oct 11, 2023 at 18:30 Medical Diagnosis: slurred speech Onset Date: Oct 10, 2023 Therapy Diagnosis Therapy Diagnosis: hearing deficit, weakness Precautions Precautions/Isolations: Fall Prevention, Standard Precautions Weight Bear Status Weight Bearing Restriction: Full Weight Bearing Referral Referral Reason: Evaluation/Treatment Medical History Additional Medical History 78-year-old male who came into the ER via EMS yesterday at 2 PM due to general lethargy and slurred speech. Last known normal was the night before around 9 PM. His woke up around 10 AM yesterday, noticed his speech was slurred and was getting worse throughout the day. He missed some Tegretol for his history of trigeminal neuralgia, so he took 2 doses 2 nights ago, and he accidentally took an extra dose yesterday morning. Other than that, EMS reports his glucose was around 90 and his vitals were unremarkable. They gave him a 0 on their stroke scale. He only reported dry mouth. Denied any pain anywhere, vomiting, diarrhea, or any other concerns. Reviewed History: Yes Social History Home: Assisted Living Current Living Status: Spouse Entry Into Home: Stairs With Railing Steps Into Home: 1 Steps Inside Home: 0 Lives in [place], has a home n [place] [employer] [place] [email or web address] ADL-Prior Level of Function SCALE: Activities may be completed with or without assistive devices. 6-Whjyvvxrmm-fqkfsgq completes the activity by him/herself with no assistance from a helper. 5-Set-up or Clean-up Assistance-helper sets up or cleans up; patient completes activity. [place] assists only prior to or following the activity. 4-Supervision or Touching Assistance-helper provides verbal cues and/or touching/steadying and/or contact guard assistance as patient completes activity. Assistance may be provided throughout the activity or intermittently. 3-Partial/Moderate Assistance-helper does LESS THAN HALF the effort. [place] lifts, holds or supports trunk or limbs, but provides less than half the effort. 2-Substantial/Maximal Assistance-helper does MORE THAN HALF the effort. [place] lifts or holds trunk or limbs and provides more than half the effort. 5-Qqkdxibdi-husltu does ALL the effort. Patient does none of the effort to complete the activity. Or, the assistance of 2 or more helpers is required for the patient to complete the activity. If activity was not attempted, code reason: 7-Patient Refused. 9-Not Applicable-not attempted and the patient did not perform the activity before the current illness, exacerbation or injury. 10-Not Attempted due to Environmental Limitations-(lack of equipment, weather restraints, etc.). 88-Not Attempted due to Medical Conditions or Safety Concerns. Self Care: Independent Functional Cognition: Independent DME/Equipment: Tub/Shower Drive Self: Yes OT Current Status Subjective Agreeable to participate. Hard of hearing Mental Status/Objective Patient Orientation: Person, Place, Time, Situation Current Glasses/Contacts: Yes Hearing Aids: No (hard of hearing) Dentures/Partials: No Hand Dominance: Right Upper Extremity ROM BUE ROM WFLS Upper Extremity Coordination intact Upper Extremity Strength +4/5 grossly BUE ADL-Treatment Eating (QC): 6 Oral Hygiene (QC): 6 Shower/Bathe Self (QC): 7 Upper Body Dressing (QC): 6 Lower Body Dressing (QC): 6 On/Off Footwear (QC): 6 (socks and tie shoes) Toileting Hygiene (QC): 6 Education OT Patient Education: Correct positioning, Progress toward Goal/Update tx plan, Purpose of tx/functional activities, Reviewed precautions, Rehab process, Safety issues, Transfer techniques Teaching Recipient: Patient, Family (spouse) Teaching Methods: Demonstration, Discussion Response to Teaching: Return Demonstration OT Long-Term Goals Environmental Specialist Goals 1=Demonstrate adherence to instructed precautions during ADL tasks. 2=Patient will verbalize/demonstrate understanding of assistive devices/modifications for ADL. 3=Patient will improve strength/tolerance for activity to enable patient to perform ADL's. OT Education/Plan Problem List/Assessment Assessment: No Skilled OT Needs ID'd, Decreased Activ Tolerance Discharge Recommendations Plan/Recommendations: Discontinue OT Treatment Plan/Plan of Care Patient would benefit from OT for education, treatment and training to promote independence in ADL's, mobility, safety and/or upper extremity function for ADL's. Plan of Care: OTHER (EVAL only) Treatment Duration: Oct 12, 2023 Frequency: 1 time per week Estimated Hrs Per Day: .25 hour per day Rehab Potential: Good Time Start Time: 12:50 Stop Time: 13:01 DATE: Oct 12, 2023 Total Time Billed (hr/min): 11 Billed Treatment Time EVL 11 min MIGUEL ANGEL GU OT Oct 12, 2023 12:59
--- NOTE | 2023-10-12 14:30 | Short Stay Summary-Hospitalist ---
RADHA PEOPLES 10/12/23 1430: History of Present Illness HPI/Chief Complaint Pt is a 78-year-old male who came into the ER via EMS yesterday at 2 PM due to general lethargy and slurred speech. Last known normal was the night before around 9 PM. His woke up around 10 AM yesterday, noticed his speech was slurred and was getting worse throughout the day. He missed some Tegretol for his history of trigeminal neuralgia, so he took 2 doses 2 nights ago, and he accidentally took an extra dose yesterday morning. Other than that, EMS reports his glucose was around 90 and his vitals were unremarkable. They gave him a 0 on their stroke scale. He only reported dry mouth. Denied any pain anywhere, vomiting, diarrhea, or any other concerns. Today, pt feels better and wonders if his blood sugar being low contributed to how he felt yesterday. States that he has had low blood sugar before but has never felt weak like yesterday with staggering gait. He reports one fall where his R eyebrow was hit. His states that his speech is improved today. Pt reports that his L side of his face is still slightly droopy compared to the other side but unclear if this is his baseline. Source: patient, family Date Seen 10/12/23 Time Seen by a Provider: 14:27 Attending Physician No,Local Physician PCP Admitting Physician: Sarah Ibarra MD Attending Physician: Sarah Ibarra MD Referring Physician Date of Admission Oct 11, 2023 at 18:30 Home Medications & Allergies Home Medications Reviewed patient Home Medication Reconciliation performed by pharmacy medication reconciliations medical lab technician and/or nursing. Patients Allergies have been reviewed. Allergies Allergies Coded Allergies No Known Allergies (Verified Allergy, Unknown, 04/26/22) Past Medical/Social/Family Hx Patient Social History Marrital Status: Tobacco Use?: No Smoking Status: Never a Smoker Smokeless Tobacco Frequency: Never a User Use of E-Cig and/or Vaping dev: No E-Cig and/or Vaping Freq: Never a User Substance use?: No Alcohol Use?: No Pt stated abuse/neglect: No Immunizations Up To Date Influenza Vaccine Up-to-Date: Yes; Up-to-Date Current Status Advance Directives: No Communicates: Verbally Primary Language: Jamaican Preferred Spoken Language: Jamaican Is interpretation needed?: No Review of Systems Constitutional: No chills, No fever, No weakness EENTM: No blurred vision, No double vision, No vision loss Respiratory: No cough, No dyspnea on exertion, No hemoptysis, No short of breath Cardiovascular: No chest pain, No palpitations Gastrointestinal: No abdominal pain, No diarrhea, No hematemesis, No nausea, No vomiting Genitourinary: No dysuria, No hematuria Musculoskeletal: No back pain, No gout Skin: No pruritus, No rash Psychiatric/Neurological: Denies Headache; Paresthesia (L side of face) Physical Exam Physical Exam Vital Signs Vital Signs - First Documented 10/11/23 10/11/23 14:01 18:53 Temp 36.7 Pulse 85 Resp 15 B/P (MAP) 137/71 (93) Pulse Ox 96 O2 Delivery Room Air FiO2 21 Capillary Refill : Less Than 3 Seconds Height, Weight, BMI Height: '" Weight: lbs. oz. kg; 28.89 BMI Method: General Appearance: No Apparent Distress, Chronically ill Eyes: Bilateral Eye Normal Inspection, Bilateral Eye PERRL HEENT: TMs Normal, Normal ENT Inspection Neck: Normal Inspection, Non Tender Respiratory: Chest Non Tender, No Accessory Muscle Use, No Respiratory Distress, Crackles Cardiovascular: No JVD, Systolic Murmur, Gallop/S3 Gastrointestinal: Normal Bowel Sounds, Non Tender, Soft Extremity: No Calf Tenderness, Pedal Edema (3+ worse on the R side), Other (Lower extremities are pale b/l) Neurologic/Psychiatric: Alert, Oriented x3, No Motor/Sensory Deficits, Normal Mood/Affect; No Aphasia; Facial Droop (L side lower face asymmetrical smile and very slight droop. Unsure if at baseline); No Motor Weakness Skin: Normal Color, Cool, Pallor (b/l feet and legs) Results Results/Procedures Labs Laboratory Tests 10/11/23 14:10 10/11/23 19:01 10/12/23 04:05 Patient resulted labs reviewed. Imaging: Reviewed Imaging Report Short Stay Diagnosis Discharge Diagnosis-Short Stay Admission Diagnosis Slurred speech, carbamazepine toxicity, BONITA Conclusion Plan Slurred speech secondary to carbamazepine toxicity - MRI head today to rule out stroke - Negative noncontrast CT head - Neg coags - Urine tox screen + for TCAs with carbamazepine >15. Repeat titer BONITA - Creatinine 1.53 in ER and 1.24 today on repeat CMP - Continue NaCl, KCl/dextrose for adequate hydration T2DM - Episode of hypoglycemia at 57. Most recent glucometer = 75. - Continue sliding scale insulin Hypothyroidism - Continue levothyroxine 125 mcg PO/d Clinical Quality Measures Stroke: Date of last known well: Oct 10, 2023 Time of last known well: 21:00 BRODY CANO MD 10/12/23 1508: Short Stay Diagnosis Discharge Diagnosis-Short Stay Final Discharge Diagnosis Tegretol Overdose Conclusion Plan Patient mated to the hospital due to strokelike symptoms and slurred speech. CT head and CTA were negative for acute findings or large vessel occlusions. He did report maybe taking an extra couple doses of his Tegretol. His level was found to be greater than 15. He was monitored overnight and treated with IV fluids. A repeat level after talking to poison control was found to be 7.6. His symptoms resolved. An MRI was done just to be sure that he did not have any other processes going on was negative for acute infarct. He reported being back to his baseline and his agreed with this. He was adamant about discharging in order to go deer hunting tomorrow. He was discharged home in stable improved condition to follow-up with his primary care physician in [place] in 2 weeks. Supervisory-Addendum Brief Verification & Attestation Participated in pt care: history, MDM, physical Personally performed: exam, history, MDM, supervision of care Care discussed with: Medical Student Procedures: n/a Results interpretation: Verified all documentation Verification and Attestation of Medical Student E/M Service A medical student performed and documented this service in my presence. I reviewed and verified all information documented by the medical student and made modifications to such information, when appropriate. I personally performed the physical exam and medical decision making. Brody Cano, Oct 12, 2023,15:07 RADHA PEOPLES Oct 12, 2023 14:30 BRODY CANO MD Oct 12, 2023 15:08
== END 2023-10-12 14:00 | disposition home or self-care (01) | DRG 918 ==
LOC: EDUNIT# 14:01 → ER FS 14:02 → ICU 18:30
PROVIDERS: ADMIT Internal Medicine; ATTEND Internal Medicine
DX: T42.1X1A Poisoning by iminostilbenes, accidental (unintentional), initial encounter (principal); N17.9 Acute kidney failure, unspecified; R47.81 Slurred speech; E03.9 Hypothyroidism, unspecified; E11.649 Type 2 diabetes mellitus with hypoglycemia without coma; G43.909 Migraine, unspecified, not intractable, without status migrainosus; G50.0 Trigeminal neuralgia; I10 Essential (primary) hypertension
CPT/HCPCS: 36415; 70450; 70496; 70498; 70551; 71045; 80048; 80053; 80156; 80306; 80320; 81000; 82947; 83880; 84443; 84484; 85025; 85610; 85730; 87081; 93005; 93041; Q9967